=== PATIENT | male | born 1955 | race Caucasian/White ===

== ENCOUNTER → 2017-05-14 | Outpatient (CLI) | payer OTHER ==
[2017-05-14 09:18] LABS: BLOOD UREA NITROGEN 15 mg/dL (7-18)
[2017-05-14 09:22] LABS: ASPARTATE AMINO TRANSFERASE 23 U/L (15-37); LACTATE DEHYDROGENASE 190 U/L (87-241)
[2017-05-14 10:34] LABS: HEMATOCRIT 48.7 % (39.2-51.8); HEMOGLOBIN 16.5 g/dL (13.7-18.0)
[2017-05-14 10:41] LABS: WHITE BLOOD COUNT 78.8 x10^3/uL (3.4-10)
[2017-05-14 10:56] LABS: DIFF TOTAL CELLS COUNTED 100 CELL DIFF
[2017-05-14 10:58] LABS: VERIFY COUNTS? YES
[2017-05-14 11:00] LABS: SMUDGE CELLS 2+
== END | disposition home or self-care (01) ==
LOC: LAB 08:56
PROVIDERS: ATTEND Specialist
DX: C91.10 Chronic lymphocytic leukemia of B-cell type not having achieved remission (principal)
CPT/HCPCS: 36415; 80053; 83615; 84550; 85025

== ENCOUNTER → 2017-11-16 | Outpatient (CLI) | payer OTHER | END | disposition home or self-care (01) | LOC: CFH 08:58 | PROVIDERS: ATTEND Specialist | DX: N20.0 Calculus of kidney (principal); C91.10 Chronic lymphocytic leukemia of B-cell type not having achieved remission | CPT/HCPCS: 71250; 74176 ==

== ENCOUNTER 2018-01-01 11:12 | Observation (INO) | payer OTHER ==
[~2018-01-01] VITALS: Ht 167.6 cm; Wt 96.5 kg
[2018-01-01 11:58] LABS: ALBUMIN 3.8 g/dL (3.4-5.0); ANION GAP 8 mmol/L (5-15); CALCIUM 8.5 mg/dL (8.5-10.1); CHLORIDE 108 mmol/L (98-107)
[2018-01-01 11:59] LABS: MEAN CORPUSCULAR HGB CONC 33.9 g/dL (33.2-36.2); MEAN CORPUSCULAR VOLUME 94.4 fL (81-97); MEAN PLATELET VOLUME 7.7 fL (7.4-10.4); PLATELET COUNT 169 x10^3/uL (130-400); RED BLOOD COUNT 4.72 x10^6/uL (4.38-5.82); RED CELL DISTRIBUTION WIDTH 12.6 % (9.4-14.8)
[2018-01-01] MEDS ORDERED: SODIUM CHLORIDE FLUSH 10ML SYR IVF ONE (12:00)
[2018-01-01 12:14] LABS: INTERNATIONAL NORMALIZED RATIO 1.06 (0.93-1.1)
[2018-01-01] MEDS ORDERED: SODIUM CHLORIDE FLUSH 10ML SYR IVF PRN (13:00)
[2018-01-01 13:03] LABS: MD YES
[2018-01-01 13:20] LABS: LYMPH#(MANUAL) 69.87 x10^3/uL (1-3.4); LYMPHS% (MANUAL) 88 % (22-44); MONOS#(MANUAL) 0.79 x10^3/uL (0.3-2.7); MONOS% (MANUAL) 1 % (2-9); SEG#(MANUAL) 8.73 x10^3/uL (1.8-6.8); SEGS% (MANUAL) 11 % (42-75)
[2018-01-01 13:21] LABS: EOS% (MANUAL) 0 % (1-7)
[2018-01-01 13:23] LABS: <PLATELET ESTIMATE> ADEQUATE; <PLT MORPHOLOGY> NORMAL PLT MORPH; ANISOCYTOSIS 1+; MICROCYTOSIS 1+; POLYCHROMASIA 1+
[2018-01-01] MEDS ORDERED: FENTANYL PF 100 MCG/2ML ONE (14:08)
[2018-01-01] MEDS ORDERED: MIDAZOLAM 1 MG/ML, 2ML ONE (14:09)
[2018-01-01] MEDS ORDERED: DEXAMETHASONE 4 MG/ML, 1ML ONE (14:26)
[2018-01-01] MEDS ORDERED: EPHEDRINE 50 MG/ML, 1ML ONE (14:26)
[2018-01-01] MEDS ORDERED: CEFAZOLIN 1,000 MG ONE (14:26)
[2018-01-01] MEDS ORDERED: LIDOCAINE PF 2%, 5ML ONE (14:26)
[2018-01-01] MEDS ORDERED: ROCURONIUM 10 MG/ML,10ML ONE (14:26)
[2018-01-01] MEDS ORDERED: ONDANSETRON 2MG/ML, 2ML ONE (14:26)
[2018-01-01] MEDS ORDERED: PROPOFOL 10 MG/ML, 20ML ONE (14:26)
[2018-01-01] MEDS ORDERED: ACETAMINOPHEN 325 MG TABLET PO PRN (16:30)
[2018-01-01] MEDS ORDERED: FENTANYL PF 100 MCG/2ML IV PRN (16:30)
[2018-01-01] MEDS ORDERED: PROMETHAZINE 25 MG/ML, 1ML IV PRN (16:30)
[2018-01-01] MEDS ORDERED: ALBUTEROL SULFATE 2.5 MG/3 ML NPPB PRN (16:30)
[2018-01-01] MEDS ORDERED: MORPHINE SULFATE 4 MG/ML, 1ML IVPush PRN (16:30)
[2018-01-01] MEDS ORDERED: OXYcodone 5 MG/5 ML ORAL.SOL UDC PO PRN (16:30)
[2018-01-01] MEDS ORDERED: OMNIPAQUE 350 MG/ML, 50 ML BOTTLE ONE (17:20)
[2018-01-01 17:23] VITALS: BP 134/84
[2018-01-01] MEDS ORDERED: ONDANSETRON 2MG/ML, 2ML IV PRN (18:00)
[2018-01-01] MEDS ORDERED: PHENAZOPYRIDINE 200 MG TABLET PO PRN (18:00)
[2018-01-01] MEDS ORDERED: MORPHINE SULFATE 4 MG/ML, 1ML IV PRN (18:00)
[2018-01-01] MEDS ORDERED: D5%-0.45% NACL 1,000 ML IV SCH (18:00)
[2018-01-01 19:39] VITALS: BP 138/88
[2018-01-01] MEDS ORDERED: OXYC-302 PO (19:40)
[2018-01-01] MEDS ORDERED: SULF-169 PO (19:44)
[2018-01-01] MEDS ORDERED: PHEN-418 PO (19:45)
[2018-01-01 20:00] VITALS: BP 137/86
== END 2018-01-01 20:20 | disposition home or self-care (01) ==
LOC: OR 12:58 → EDIP 13:00 → 4NOR 17:16
PROVIDERS: ADMIT Urology; ATTEND Urology
DX: N13.2 Hydronephrosis with renal and ureteral calculous obstruction (principal); N13.5 Crossing vessel and stricture of ureter without hydronephrosis; Z85.6 Personal history of leukemia
CPT/HCPCS: 36415; 52356; 74420; 80048; 82040; 85025; 85610; 85730; 87075; 87086; 99285; C1726; C1758; C1769; C2617; G0378; J0690; J1100; J2250; J2405; J2704; J3010; Q9967

== ENCOUNTER → 2018-01-16 | Outpatient (CLI) | payer OTHER ==
[~2018-01-16] MED LIST: OXYC-302 PO; PHEN-418 PO; SULF-169 PO
== END | disposition home or self-care (01) ==
LOC: CFH 09:00
PROVIDERS: ATTEND Urology
DX: I87.8 Other specified disorders of veins (principal); N28.89 Other specified disorders of kidney and ureter; N20.0 Calculus of kidney; Z96.0 Presence of urogenital implants
CPT/HCPCS: 74018

== ENCOUNTER → 2018-02-22 | Outpatient (CLI) | payer OTHER ==
[~2018-02-22] MED LIST changes: +NONE PER PT
[2018-02-22 11:29] LABS: MICROSCOPIC INDICATED
== END | disposition home or self-care (01) ==
LOC: STAR 10:45
PROVIDERS: ATTEND Urology
DX: Z01.818 Encounter for other preprocedural examination (principal); N20.0 Calculus of kidney
CPT/HCPCS: 81001; 87086; 93005

== ENCOUNTER 2018-02-26 06:04 | Day surgery (SDC) | payer OTHER ==
[~2018-02-26] VITALS: Ht 167.6 cm; Wt 98.1 kg
[2018-02-26 06:45] VITALS: BP 177/111
[2018-02-26] MEDS ORDERED: LACTATED RINGERS 1,000 ML IV SCH (06:48)
[2018-02-26] MEDS ORDERED: LIDOCAINE-MPF 1%, 2ML ONE (06:50)
[2018-02-26] MEDS ORDERED: LIDOCAINE-MPF 1%, 2ML INFIL ONE (07:00)
[2018-02-26] MEDS ORDERED: FENTANYL PF 250 MCG/5ML ONE (07:13)
[2018-02-26] MEDS ORDERED: MIDAZOLAM 1 MG/ML, 2ML ONE (07:13)
[2018-02-26] MEDS ORDERED: DEXAMETHASONE 4 MG/ML, 1ML ONE (07:32)
[2018-02-26] MEDS ORDERED: ROCURONIUM 10 MG/ML,10ML ONE (07:32)
[2018-02-26] MEDS ORDERED: CEFAZOLIN 1,000 MG ONE (07:32)
[2018-02-26] MEDS ORDERED: GLYCOPYRROLATE 0.2MG/1ML, 5ML ONE (07:32)
[2018-02-26] MEDS ORDERED: PROPOFOL 10 MG/ML, 20ML ONE (07:32)
[2018-02-26] MEDS ORDERED: ONDANSETRON 2MG/ML, 2ML ONE (07:32)
[2018-02-26] MEDS ORDERED: NEOSTIGMINE 1 MG/ML, 10ML ONE (07:32)
[2018-02-26] MEDS ORDERED: LABETALOL 5MG/ML, 20ML IV PRN (08:00)
[2018-02-26] MEDS ORDERED: ALBUTEROL SULFATE 2.5 MG/3 ML NPPB PRN (08:00)
[2018-02-26] MEDS ORDERED: LORazepam 2 MG/ML, 1ML IVPush PRN (08:00)
[2018-02-26] MEDS ORDERED: MEPERIDINE/PF 25MG/0.5ML IVPush PRN (08:00)
[2018-02-26] MEDS ORDERED: HYDROmorphone 1 MG/ML, 1ML IV PRN (08:00)
[2018-02-26] MEDS ORDERED: ACETAMINOPHEN 325 MG TABLET PO PRN (08:00)
[2018-02-26] MEDS ORDERED: OXYcodone 5 MG/5 ML ORAL.SOL UDC PO PRN (08:00)
[2018-02-26] MEDS ORDERED: hydrALAzine 20 MG/ML, 1ML IV PRN (08:00)
[2018-02-26] MEDS ORDERED: FENTANYL PF 100 MCG/2ML IV PRN (08:00)
[2018-02-26] MEDS ORDERED: OMNIPAQUE 350 MG/ML, 50 ML BOTTLE IV ONE (08:16)
[2018-02-26] MEDS ORDERED: ACETAMINOPHEN 650 MG/20.3 ML UDC ONE (10:08)
[2018-02-26] MEDS ORDERED: OXYcodone 5 MG/5 ML ORAL.SOL UDC ONE (10:08)
[2018-02-26] MEDS ORDERED: OMNIPAQUE 350 MG/ML, 50 ML BOTTLE ONE (10:33)
== END 2018-02-26 11:35 | disposition home or self-care (01) ==
LOC: OUT 06:04
PROVIDERS: ATTEND Urology
DX: N20.0 Calculus of kidney (principal); Z72.89 Other problems related to lifestyle
CPT/HCPCS: 52356; 74420; 82360; 88300; C1726; C1758; C1769; C2617; J0690; J1100; J2250; J2405; J2704; J2710; J3010; J3490; J7120; Q9967

== ENCOUNTER → 2018-04-18 | Outpatient (CLI) | payer OTHER ==
[2018-04-18 07:39] LABS: ALANINE AMINOTRANSFERASE 52 U/L (12-78); ALBUMIN 4.1 g/dL (3.4-5.0); ANION GAP 10 mmol/L (5-15); CALCIUM 8.5 mg/dL (8.5-10.1); CHLORIDE 108 mmol/L (98-107); CREATININE 1.34 mg/dL (0.7-1.3)
[2018-04-18 07:42] LABS: ALKALINE PHOSPHATASE 67 U/L (45-117); BILIRUBIN,TOTAL 1.1 mg/dL (0.2-1.0); TOTAL PROTEIN 6.7 g/dL (6.4-8.2)
[2018-04-18 07:50] LABS: MEAN CORPUSCULAR HGB CONC 33.3 g/dL (33.2-36.2); MEAN CORPUSCULAR VOLUME 96.2 fL (81-97); MEAN PLATELET VOLUME 8.2 fL (7.4-10.4); PLATELET COUNT 159 x10^3/uL (130-400); RED BLOOD COUNT 5.13 x10^6/uL (4.38-5.82); RED CELL DISTRIBUTION WIDTH 12.9 % (9.4-14.8)
[2018-04-18 08:51] LABS: MD YES
[2018-04-18 08:52] LABS: EOS#(MANUAL) 0.76 x10^3/uL (0.0-0.4); EOS% (MANUAL) 1 % (1-7); LYMPH#(MANUAL) 67.95 x10^3/uL (1-3.4); LYMPHS% (MANUAL) 90 % (22-44); MONOS#(MANUAL) 0.76 x10^3/uL (0.3-2.7); MONOS% (MANUAL) 1 % (2-9); SEG#(MANUAL) 6.04 x10^3/uL (1.8-6.8); SEGS% (MANUAL) 8 % (42-75)
[2018-04-18 08:53] LABS: <PLATELET ESTIMATE> ADEQUATE; <PLT MORPHOLOGY> NORMAL PLT MORPH; <RBC MORPHOLOGY> NORMAL
[2018-04-18 08:54] LABS: SMUDGE CELLS 2+
== END | disposition home or self-care (01) ==
LOC: LAB 07:16
PROVIDERS: ATTEND Specialist
DX: C91.10 Chronic lymphocytic leukemia of B-cell type not having achieved remission (principal)
CPT/HCPCS: 36415; 80053; 83615; 84550; 85025

== ENCOUNTER 2019-01-02 08:27 | Outpatient (CLI) | payer OTHER | END 2019-01-02 23:59 | disposition home or self-care (01) | LOC: LAB 08:27 | PROVIDERS: ATTEND Family Medicine | DX: E83.51 Hypocalcemia (principal) | CPT/HCPCS: 36415; 80048; 80061; 82043; 82570 ==

== ENCOUNTER → 2019-06-26 | Outpatient (CLI) | payer OTHER ==
[2019-06-26 08:39] LABS: MEAN CORPUSCULAR HEMOGLOBIN 29.5 pg (27.5-34.5); MEAN CORPUSCULAR HGB CONC 31.8 g/dL (33.2-36.2); MEAN CORPUSCULAR VOLUME 92.7 fL (81-97); MEAN PLATELET VOLUME 8.5 fL (7.4-10.4); PLATELET COUNT 348 x10^3/uL (130-400); RED BLOOD COUNT 5.11 x10^6/uL (4.38-5.82); RED CELL DISTRIBUTION WIDTH 18.2 % (9.4-14.8)
[2019-06-26 08:47] LABS: MICROSCOPIC AUTO
[2019-06-26 08:48] LABS: ALBUMIN 3.9 g/dL (3.4-5.0); ANION GAP 8 mmol/L (5-15); CHLORIDE 105 mmol/L (98-107); CREATININE 1.18 mg/dL (0.7-1.3)
[2019-06-26 09:06] LABS: MD YES
[2019-06-26 09:11] LABS: LYMPH#(MANUAL) 37.05 x10^3/uL (1-3.4); LYMPHS% (MANUAL) 79 % (22-44); MONOS#(MANUAL) 0.47 x10^3/uL (0.3-2.7); MONOS% (MANUAL) 1 % (2-9); SEG#(MANUAL) 9.38 x10^3/uL (1.8-6.8); SEGS% (MANUAL) 20 % (42-75)
[2019-06-26 09:12] LABS: <PLATELET ESTIMATE> ADEQUATE; <PLT MORPHOLOGY> NORMAL PLT MORPH; <RBC MORPHOLOGY> NORMAL; SMUDGE CELLS 2+
== END | disposition home or self-care (01) ==
LOC: LAB 08:11
PROVIDERS: ATTEND Internal Medicine Nephrology
DX: N17.9 Acute kidney failure, unspecified (principal)
CPT/HCPCS: 36415; 80069; 81001; 82570; 83036; 83735; 84156; 84550; 85025

== ENCOUNTER → 2020-10-14 | Outpatient (CLI) | payer MEDICARE, OTHER ==
[~2020-10-14] MED LIST changes: +BENA1TAB9 PO; +CHOL10003 PO; +FLAX10004 PO; -OXYC-302 PO; +OXYC1TAB14 PO; +VITA1TAB19 PO
[2020-10-14 14:57] LABS: MEAN CORPUSCULAR HGB CONC 31.8 g/dL (33.2-36.2); MEAN PLATELET VOLUME 9.2 fL (7.4-10.4); PLATELET COUNT 336 x10^3/uL (130-400); RED BLOOD COUNT 4.88 x10^6/uL (4.38-5.82)
[2020-10-14 15:06] LABS: INTERNATIONAL NORMALIZED RATIO 1.05 (0.93-1.1); PROTHROMBIN TIME 11.2 Seconds (9.6-11.5)
[2020-10-14 15:09] LABS: ANION GAP 4 mmol/L (5-15); CALCIUM 8.9 mg/dL (8.5-10.1); CHLORIDE 108 mmol/L (98-107)
[2020-10-14 15:12] LABS: MD YES
[2020-10-14 15:13] LABS: ALANINE AMINOTRANSFERASE 34 U/L (12-78); ALKALINE PHOSPHATASE 69 U/L (45-117); BILIRUBIN,TOTAL 0.7 mg/dL (0.2-1.0); CREATININE 1.03 mg/dL (0.7-1.3); TOTAL PROTEIN 6.9 g/dL (6.4-8.2)
[2020-10-14 15:17] LABS: LYMPHS% (MANUAL) 90 % (22-44); MONOS#(MANUAL) 1.18 x10^3/uL (0.3-2.7); MONOS% (MANUAL) 2 % (2-9); SEG#(MANUAL) 4.72 x10^3/uL (1.8-6.8); SEGS% (MANUAL) 8 % (42-75)
[2020-10-14 15:19] LABS: ANISOCYTOSIS 1+
[2020-10-14 15:21] LABS: <PLATELET ESTIMATE> ADEQUATE; <PLT MORPHOLOGY> NORMAL PLT MORPH; SMUDGE CELLS 2+
== END | disposition home or self-care (01) ==
LOC: STAR 13:14
PROVIDERS: ATTEND Surgery
DX: Z01.818 Encounter for other preprocedural examination (principal); D49.2 Neoplasm of unspecified behavior of bone, soft tissue, and skin; Z20.822 Contact with and (suspected) exposure to COVID-19
CPT/HCPCS: 36415; 80053; 85025; 85610; 93005; U0003; U0005

== ENCOUNTER 2020-10-20 12:08 | Day surgery (SDC) | payer MEDICARE ==
[~2020-10-20] VITALS: Ht 167.6 cm; Wt 96.5 kg
[2020-10-20 12:33] VITALS: BP 170/97
[2020-10-20] MEDS ORDERED: CHLORHEXIDINE 15 ML UDC ONE (12:40)
[2020-10-20] MEDS ORDERED: LACTATED RINGERS 1,000 ML IV SCH (13:00)
[2020-10-20] MEDS ORDERED: CHLORHEXIDINE 15 ML UDC PO ONE (13:00)
[2020-10-20] MEDS ORDERED: BUPIVACAINE/PF 0.5% ONE (13:46)
[2020-10-20] MEDS ORDERED: EPINEPHRINE 1 MG/ML, 1ML ONE (13:47)
[2020-10-20] MEDS ORDERED: MIDAZOLAM 1 MG/ML, 2ML ONE (13:50)
[2020-10-20] MEDS ORDERED: FENTANYL PF 100 MCG/2ML ONE ×2 (13:50→14:21)
[2020-10-20] MEDS ORDERED: ROCURONIUM 10 MG/ML,10ML ONE (13:59)
[2020-10-20] MEDS ORDERED: ONDANSETRON 2MG/ML, 2ML ONE ×2 (13:59→15:06)
[2020-10-20] MEDS ORDERED: DEXAMETHASONE 4 MG/ML, 1ML ONE (13:59)
[2020-10-20] MEDS ORDERED: SUCCINYLCHOLINE 20 MG/ML, 10ML ONE (13:59)
[2020-10-20] MEDS ORDERED: ACETAMINOPHEN 325 MG TABLET PO PRN (14:00)
[2020-10-20] MEDS ORDERED: PROMETHAZINE 25 MG/ML, 1ML IVPush PRN (14:00)
[2020-10-20] MEDS ORDERED: MEPERIDINE/PF 25MG/0.5ML IVPush PRN (14:00)
[2020-10-20] MEDS ORDERED: hydrALAzine 20 MG/ML, 1ML IV PRN (14:00)
[2020-10-20] MEDS ORDERED: LABETALOL 5MG/ML, 20ML IV PRN (14:00)
[2020-10-20] MEDS ORDERED: MIDAZOLAM 1 MG/ML, 2ML IV PRN (14:00)
[2020-10-20] MEDS ORDERED: FENTANYL PF 100 MCG/2ML IV PRN (14:00)
[2020-10-20] MEDS ORDERED: ALBUTEROL SULFATE 2.5 MG/3 ML NPPB PRN (14:00)
[2020-10-20] MEDS ORDERED: OXYcodone 5 MG/5 ML ORAL.SOL UDC PO PRN (14:00)
[2020-10-20] MEDS ORDERED: BUPIVACAINE/PF-EPI 0.5% 1:200K INFIL ONE (14:21)
[2020-10-20] MEDS ORDERED: LIDOCAINE-MPF 2% ,5ML ONE ×2 (14:35→15:06)
[2020-10-20] MEDS ORDERED: CEFAZOLIN 1,000 MG ONE (15:06)
[2020-10-20] MEDS ORDERED: PROPOFOL 10 MG/ML, 20ML ONE (15:06)
[2020-10-20] MEDS ORDERED: HYDR-2214 PO (15:16)
== END 2020-10-20 16:45 | disposition home or self-care (01) ==
LOC: OUT 12:08
PROVIDERS: ATTEND Surgery
DX: C43.59 Malignant melanoma of other part of trunk (principal); I10 Essential (primary) hypertension; E66.9 Obesity, unspecified; Z68.34 Body mass index [BMI] 34.0-34.9, adult; Z79.899 Other long term (current) drug therapy; Z87.442 Personal history of urinary calculi; Z98.890 Other specified postprocedural states
CPT/HCPCS: 14000; 88307; J0171; J0330; J0690; J1100; J2250; J2405; J2704; J3010; J7120